=== PATIENT | female | born 1985 | race American Indian/Alaskan Native ===

== ENCOUNTER 2018-12-08 16:48 | Emergency (ER) | payer SELFPAY | END 2018-12-08 18:00 | disposition left against medical advice (07) | LOC: ED 16:48 ==

== ENCOUNTER 2019-05-02 20:21 | Emergency (ER) | payer MEDICAID ==
--- NOTE | 2019-05-02 20:31 | Emergency Department Report ---
Blank Doc - Documentation Documentation: This is a 34-year-old female that presents with pelvic pain with dysuria and v aginal discharge. This initial assessment/diagnostic orders/clinical plan/treatment(s) is/are subject to change based on patient's health status, clinical progression and re- assessment by fellow clinical providers in the ED. Further treatment and workup at subsequent clinical providers discretion. Patient/guardians urged not to elope from the ED as their condition may be serious if not clinically assessed and managed. Initial orders include: 1- Patient sent to [facility] for further evaluation and treatment 2- wet prep 3- UA
[2019-05-02 20:32] VITALS: BP 126/79
[2019-05-02 21:35] LABS: Bacteria,Urine 1+ /HPF (Negative); Bilirubin,Urine NEG (Negative); Blood,Urine NEG (Negative); Color,Urine Yellow (Yellow); Mucus,Urine FEW /HPF; Protein,Urine <15 mg/dL mg/dL (Negative); Urobilinogen,Urine < 2.0 mg/dL (<2.0)
[2019-05-02 21:40] LABS: HCG Qualitative,Urine Negative (Negative)
--- NOTE | 2019-05-03 01:35 | Emergency Department Report ---
ED Female HPI - General Chief complaint: Abdominal Pain Stated complaint: ABD PAIN Time Seen by Provider: 05/02/19 20:30 Source: patient Mode of arrival: Ambulatory Limitations: No Limitations - History of Present Illness Initial comments: This is a 34-year-old Afro-[place] female who presents to the emergency room with vaginal discharge, dysuria, and vaginal irritation for 2 days. Patient states she has taken [id number] Monistat with no improvement of symptoms. She also reports some pelvic pain. She denies risk STD due to condom use. Patient reports a history of uterine prolapse which causes frequent infections. Last menstrual period was 04/13/2019, A0. She denies urinary frequency, urgency, hematuria, or back pain. MD Complaint: vaginal discharge, pelvic pain Onset/Timin -: days(s) Location: labia, suprapubic Radiation: non-radiating Severity: mild Severity scale (0 -10): 3 Quality: burning, other (itching) Consistency: constant Improves with: none Worsens with: urination Are you Now?: No Last Menstrual Period: 04/13/19 EDC: 01/18/20 Associated Symptoms: vaginal discharge, abdominal pain, dysuria. denies: vaginal bleeding, nausea/vomiting, fever/chills, headaches, loss of appetite, hematuria, rash, seizure, shortness of breath, syncope, weakness - Related Data Sexually active: Yes : 3 Para: 3 A: 0 Previous Rx's Medication Instructions Recorded Last Taken Type HYDROcodone/APAP 5-325 [[place] 1 each PO Q6HR PRN #10 tablet 03/01/14 Unknown Rx 5-325 mg TAB] Ondansetron [Zofran Odt] 4 mg PO Q6H PRN #8 tab.rapdis 03/01/14 Unknown Rx metroNIDAZOLE [Flagyl TAB] 500 mg PO Q12HR #14 tab 05/03/19 Unknown Rx Allergies Allergy/AdvReac Type Severity Reaction Status Date / Time No Known Allergies Allergy Verified 05/02/19 20:24 ED Review of Systems ROS: Stated complaint: ABD PAIN Other details as noted in HPI Constitutional: denies: chills, fever Respiratory: denies: cough, shortness of breath, wheezing Cardiovascular: denies: chest pain, palpitations Gastrointestinal: abdominal pain. denies: nausea, diarrhea Genitourinary: dysuria, discharge. denies: urgency Skin: denies: rash, lesions Neurological: denies: headache, weakness, paresthesias Psychiatric: denies: anxiety, depression ED Past Medical Hx - Past Medical History Previous Medical History?: Yes Hx Asthma: Yes - Surgical History Past Surgical History?: Yes Additional Surgical History: cyst on left breast removed. tubal ligation - Social History Smoking Status: Never Smoker Substance Use Type: Alcohol - Medications Home Medications: Home Medications Medication Instructions Recorded Confirmed Last Taken Type HYDROcodone/APAP 5-325 [[place] 1 each PO Q6HR PRN #10 tablet 03/01/14 Unknown Rx 5-325 mg TAB] Ondansetron [Zofran Odt] 4 mg PO Q6H PRN #8 tab.rapdis 03/01/14 Unknown Rx metroNIDAZOLE [Flagyl TAB] 500 mg PO Q12HR #14 tab 05/03/19 Unknown Rx ED Physical Exam - General Limitations: No Limitations General appearance: alert, in no apparent distress, obese - Respiratory Respiratory exam: Present: normal lung sounds bilaterally. Absent: respiratory distress - Cardiovascular Cardiovascular Exam: Present: regular rate, normal rhythm. Absent: systolic murmur, diastolic murmur, rubs, gallop - GI/Abdominal GI/Abdominal exam: Present: soft, normal bowel sounds. Absent: distended, tenderness, guarding, rebound, rigid - External exam: Present: normal external exam Speculum exam: Present: vaginal discharge (Curdy white malodorous discharge). Absent: erythema, cervical discharge, vaginal bleeding, foreign body, tissue, laceration Bi-manual exam: Present: normal bi-manual exam - Back Exam Back exam: Absent: CVA tenderness (R), CVA tenderness (L) - Neurological Exam Neurological exam: Present: alert, oriented X3 - Psychiatric Psychiatric exam: Present: normal affect, normal mood - Skin Skin exam: Present: warm, dry, intact, normal color. Absent: rash ED Course Vital Signs 05/02/19 05/02/19 05/02/19 20:28 20:29 23:09 Temperature 97.9 F 97.9 F Pulse Rate 101 H 97 H Respiratory 18 18 16 Rate Blood Pressure 126/79 126/79 O2 Sat by Pulse 98 98 Oximetry ED Medical Decision Making - Lab Data Lab Results 05/02/19 Range/Units 20:57 Urine Color Yellow (Yellow) Urine Turbidity Cloudy (Clear) Urine pH 5.0 (5.0-7.0) Ur Specific [place] 1.032 H (1.003-1.030) Urine Protein <15 mg/dl (Negative) mg/dL Urine Glucose (UA) Neg (Negative) mg/dL Urine Ketones Neg (Negative) mg/dL Urine Blood Neg (Negative) Urine Nitrite Neg (Negative) Urine Bilirubin Neg (Negative) Urine Urobilinogen < 2.0 (<2.0) mg/dL Ur Leukocyte Esterase Lg (Negative) Urine WBC (Auto) 7.0 H (0.0-6.0) /HPF Urine RBC (Auto) 8.0 (0.0-6.0) /HPF U Epithel Cells (Auto) 11.0 (0-13.0) /HPF Urine Bacteria (Auto) 1+ (Negative) /HPF Urine Mucus Few /HPF Urine HCG, Qual Negative (Negative) - Medical Decision Making Patient was examined by this provider. Vitals are stable and in no acute dis tress. A urinalysis, urine test, gonorrhea and chlamydia, and blood prep was obtained via pelvic exam. A urinalysis and urine test was unremarkable. The wet prep was positive for clue cells, negative Trichomonas and period patient was instructed to follow up in 3-5 days for pending gonorrhea and chlamydia results. Start metronidazole 500 mg by mouth twice a day 7 days for bacterial vaginitis. Discharged home in stable condition. Discussed prevention options. F/U with PCP or Health Department. Critical care attestation.: If time is entered above; I have spent that time in minutes in the direct care of this critically ill patient, excluding procedure time. ED Disposition Clinical Impression: Vaginal discharge, Dysuria, Bacterial vaginitis Disposition: - TO HOME OR SELFCARE Is pt being admited?: No Does the pt Need Aspirin: No Condition: Stable Instructions: Abdominal Pain (ED), Bacterial Vaginosis (ED) Additional Instructions: Complete full course of antibiotics as prescribed. Return to the emergency room in 3-5 days for pending lab results. Follow-up with a drive tester if symptoms persist. I have provided a list of gynecologists in the referral section below. Prescriptions: metroNIDAZOLE [Flagyl TAB] 500 mg PO Q12HR #14 tab Referrals: [facility] [Provider Group] - 3-5 Days [facility] [Provider Group] - 3-5 Days [facility] [Provider Group] - 3-5 Days [facility] [Outside] - 3-5 Days Forms: STI Treatment and Prevention, Work/School Release Form(ED) Time of Disposition: 01:37
== END 2019-05-03 01:45 | disposition home or self-care (01) ==
LOC: ED 20:21
DX: N76.0 Acute vaginitis (principal); J45.909 Unspecified asthma, uncomplicated; Z79.899 Other long term (current) drug therapy
CPT/HCPCS: 81001; 81025; 87210; 87591; 99284

== ENCOUNTER 2019-08-11 08:10 | Emergency (ER) | payer MEDICAID ==
[2019-08-11 08:35] VITALS: BP 122/81
[2019-08-11] MEDS ORDERED: FAMOTIDINE 20 MG TAB PO ONE (08:38)
[2019-08-11] MEDS ORDERED: hydrOXYzine PAMOATE 25 MG CAP PO ONE (08:38)
[2019-08-11] MEDS ORDERED: dexAMETHasone 4 MG/ML VIAL IM ONE (08:38)
--- NOTE | 2019-08-11 08:41 | Emergency Department Report ---
ED Rash HPI - HPI Chief Complaint: Animal Bite Stated Complaint: STUNG BY BEES Time Seen by Provider: 08/11/19 08:37 Duration: 1 Day Location: Head Suspected Cause: Insect Rash Symptoms: Yes Facial Swelling (EYES), No Itching, No Tongue/Oral Swelling, No Breathing Difficulties, No Choking Sensation, No Wheezing/Dyspnea, No Peeling, No Blistering, No Fever Severity: mild Other History: 34 YO AA FEMALES COMES TO ER WITH INSECT BITE. SHE WAS BIT ON HEAD YEST AT 1300 BY A BEE. SHE THEN DEVELOPED B EYE SWELLING. NO SOB. NO WHEEZING. NO CP. NO GENE. NO OTHER COMPLAINTS. SHE DID NOT GO TO WORK TODAY BECAUSE OF SWELLING AND REQUESTS NOTE. OTC BENADRYL TAKEN AT HOME WITH MILD RELIEF ED Review of Systems ROS: Stated complaint: STUNG BY BEES Other details as noted in HPI Comment: All other systems reviewed and negative ED Past Medical Hx - Past Medical History Previous Medical History?: Yes Hx Asthma: Yes - Surgical History Past Surgical History?: Yes Additional Surgical History: cyst on left breast removed. tubal ligation - Family History Family history: no significant - Social History Smoking Status: Never Smoker Substance Use Type: None - Medications Home Medications: Home Medications Medication Instructions Recorded Confirmed Last Taken Type Cetirizine HCl [ZyrTEC] 10 mg PO DAILY #30 capsule 08/11/19 Unknown Rx hydrOXYzine PAMOATE [Vistaril] 25 mg PO Q6HR PRN #20 capsule 08/11/19 Unknown Rx predniSONE [Deltasone] 20 mg PO DAILY #5 tablet 08/11/19 Unknown Rx Rash Exam - Exam General: Vital signs noted. No distress. Alert and acting appropriately. HEENT: Yes Periorbital Edema, No Conjuctival Injection, No Chemosis, No Perioral Edema, No Tongue Edema, No Uvular Edema, No Compromised Airway, No Drooling Lungs: Yes Good Air Exchange, No Wheezes, No Ronchi, No Stridor, No Cough, No Labored Respirations, No Retractions, No Use of Accessory Muscles Heart: Yes Regular, No Murmur Skin: No Urticarial Rash, No Maculopapular Rash, No Morbilliform rash, No Bulla(e), No Excoriations Other: Positive: Abdomen Normal, Neurologic Normal, Musculoskeletal Normal ED Course Vital Signs 08/11/19 08:32 Temperature 98.2 F Pulse Rate 89 Respiratory 16 Rate Blood Pressure 122/81 [Left] O2 Sat by Pulse 97 Oximetry ED Medical Decision Making - Medical Decision Making EYES SWELLING SP BEE BITE YESTERDAY ABC INTACT NO GENE VSS SAT 100 ON ROOM AIR NO WHEEZING NO RASH MEDICATED IN ER DC HOME WITH DC PLAN OF CARE Vital Signs 08/11/19 08:32 Temperature 98.2 F Pulse Rate 89 Respiratory 16 Rate Blood Pressure 122/81 [Left] O2 Sat by Pulse 97 Oximetry - Differential Diagnosis BEE BITE Critical care attestation.: If time is entered above; I have spent that time in minutes in the direct care of this critically ill patient, excluding procedure time. ED Disposition Clinical Impression: Insect bite, Bee sting Disposition: DC-01 TO HOME OR SELFCARE Is pt being admited?: No Does the pt Need Aspirin: No Condition: Stable Instructions: Insect Bite or Sting (ED) Additional Instructions: MEDS ORDERED FOLLOW UP WITH PCP REFERRAL BELOW AVOID BEES; IF YOU GET BIT AND HAVE TROUBLE BREATHING-- CALL 911 Prescriptions: predniSONE [Deltasone] 20 mg PO DAILY #5 tablet hydrOXYzine PAMOATE [Vistaril] 25 mg PO Q6HR PRN #20 capsule PRN Reason: Itching Cetirizine HCl [ZyrTEC] 10 mg PO DAILY #30 capsule Referrals: DODIE GIBSON MD [Staff Physician] - 3-5 Days Forms: Work/School Release Form(ED) Time of Disposition: 08:40
== END 2019-08-11 09:07 | disposition home or self-care (01) ==
LOC: ED 08:10
DX: S00.96XA Insect bite (nonvenomous) of unspecified part of head, initial encounter (principal); W57.XXXA Bitten or stung by nonvenomous insect and other nonvenomous arthropods, initial encounter; J45.909 Unspecified asthma, uncomplicated; Z98.51 Tubal ligation status; Y93.89 Activity, other specified; Y92.89 Other specified places as the place of occurrence of the external cause; Y99.8 Other external cause status
CPT/HCPCS: 96372; 99282; J1100; Q0177

== ENCOUNTER 2019-10-02 19:19 | Emergency (ER) | payer SELFPAY ==
--- NOTE | 2019-10-02 19:32 | Emergency Department Report ---
Blank Doc - Documentation Documentation: 34-year-old female that presents with URI symptoms. This initial assessment/diagnostic orders/clinical plan/treatment(s) is/are subject to change based on patient's health status, clinical progression and re- assessment by fellow clinical providers in the ED. Further treatment and workup at subsequent clinical providers discretion. Patient/guardians urged not to elope from the ED as their condition may be serious if not clinically assessed and managed. Initial orders include: 1- Patient sent to [facility] for further evaluation and treatment 2- cxr
--- NOTE | 2019-10-02 20:10 | XRay Report ---
CHEST 2 VIEWS INDICATION / CLINICAL INFORMATION: cough. COMPARISON: None available. FINDINGS: SUPPORT DEVICES: None. HEART / MEDIASTINUM: No significant abnormality. LUNGS / PLEURA: No acute pulmonary or pleural abnormality. There are scattered calcified granulomata. No pneumothorax. ADDITIONAL FINDINGS: No significant additional findings. IMPRESSION: 1. No acute findings. Signer Name: Jaime Goodwin MD Signed: 10/02/2019 8:06 PM Workstation Name: [id number]
--- NOTE | 2019-10-02 20:30 | Emergency Department Report ---
- General Chief Complaint: Upper Respiratory Infection Stated Complaint: LFT SIDE PAIN/COUGH Time Seen by Provider: 10/02/19 19:31 Source: patient Mode of arrival: Ambulatory Limitations: No Limitations - History of Present Illness Initial Comments: Patient is a 34-year-old female presents emergency room with c/o URI symptoms that began a week ago. she states initially she had a sore throat and a cough. she states that the sore throat resolved and now she has a persistent dry cough. she has left ear pain. She denies any fever, productive cough, vomiting, diarrhea, drainage from the ear. She denies any past medical history or allergies medications. She states she has tried to take Robitussin, NyQuil, DayQuil, Mucinex without relief. - Related Data Previous Rx's Medication Instructions Recorded Last Taken Type Cetirizine HCl [ZyrTEC] 10 mg PO DAILY #30 capsule 08/11/19 Unknown Rx hydrOXYzine PAMOATE [Vistaril] 25 mg PO Q6HR PRN #20 capsule 08/11/19 Unknown Rx predniSONE [Deltasone] 20 mg PO DAILY #5 tablet 08/11/19 Unknown Rx Cetirizine HCl [Zyrtec 10mg tab] 10 mg PO DAILY #14 tablet 10/02/19 Unknown Rx Dextromethorphan Polistirex 10 ml PO Q12HR PRN #1 bottle 10/02/19 Unknown Rx [Delsym] Fluticasone [Flonase] 1 spray NS QDAY #1 bottle 10/02/19 Unknown Rx Allergies Allergy/AdvReac Type Severity Reaction Status Date / Time No Known Allergies Allergy Verified 05/02/19 20:24 ED Review of Systems ROS: Stated complaint: LFT SIDE PAIN/COUGH Other details as noted in HPI Comment: All other systems reviewed and negative ED Past Medical Hx - Past Medical History Previous Medical History?: Yes Hx Asthma: Yes - Surgical History Past Surgical History?: Yes Additional Surgical History: cyst on left breast removed. tubal ligation - Social History Smoking Status: Never Smoker Substance Use Type: None - Medications Home Medications: Home Medications Medication Instructions Recorded Confirmed Last Taken Type Cetirizine HCl [ZyrTEC] 10 mg PO DAILY #30 capsule 08/11/19 Unknown Rx hydrOXYzine PAMOATE [Vistaril] 25 mg PO Q6HR PRN #20 capsule 08/11/19 Unknown Rx predniSONE [Deltasone] 20 mg PO DAILY #5 tablet 08/11/19 Unknown Rx Cetirizine HCl [Zyrtec 10mg tab] 10 mg PO DAILY #14 tablet 10/02/19 Unknown Rx Dextromethorphan Polistirex 10 ml PO Q12HR PRN #1 bottle 10/02/19 Unknown Rx [Delsym] Fluticasone [Flonase] 1 spray NS QDAY #1 bottle 10/02/19 Unknown Rx ED Physical Exam - General Limitations: No Limitations General appearance: alert, in no apparent distress - Head Head exam: Present: atraumatic, normocephalic - Eye Eye exam: Present: normal appearance - ENT ENT exam: Present: normal orophraynx, mucous membranes moist, other (cerumen impaction to the left ear canal, right TM and canal are normal, no tonsillar hypertrophy or exudates, pale boggy turbinates) - Respiratory Respiratory exam: Present: normal lung sounds bilaterally. Absent: respiratory distress, wheezes, rales, rhonchi, stridor, chest wall tenderness, accessory muscle use, decreased breath sounds, prolonged expiratory - Cardiovascular Cardiovascular Exam: Present: regular rate, normal rhythm, normal heart sounds. Absent: systolic murmur, diastolic murmur, rubs, gallop - Neurological Exam Neurological exam: Present: alert, oriented X3 - Psychiatric Psychiatric exam: Present: normal affect, normal mood - Skin Skin exam: Present: warm, dry, intact ED Course Vital Signs 10/02/19 10/02/19 10/02/19 19:23 19:32 23:29 Temperature 98.5 F 98.5 F Pulse Rate 84 81 74 Respiratory 18 18 16 Rate Blood Pressure 124/54 124/54 Blood Pressure 109/86 [Right] O2 Sat by Pulse 98 100 100 Oximetry ED Medical Decision Making - Radiology Data Radiology results: report reviewed CXR no acute findings - Medical Decision Making Patient is a 34-year-old female presents emergency room with c/o URI symptoms that began a week ago. she states initially she had a sore throat and a cough. she states that the sore throat resolved and now she has a persistent dry cough. she has left ear pain. She denies any fever, productive cough, vomiting, diarrhea, drainage from the ear. She denies any past medical history or allergies medications. She states she has tried to take Robitussin, NyQuil, DayQuil, Mucinex without relief. on exam: cerumen impaction to the left ear canal, right TM and canal are normal, no tonsillar hypertrophy or exudates, pale boggy turbinates, lungs are clear bilaterally, no w/r/r. CXR no acute findings. No clinical signs or symptoms of pneumonia. No wheezing or rhonchi to suggest bronchitis. Symptoms and examination appear consistent with a viral URI. Discussed symptomatic treatment with patient. Discussed using T Brox [id number] for cerumen impaction removal. Advised patient to see her regular doctor in 3 days for reexamination of her ear. advised pt to please take medication as prescribed. Increase your water intake. please use debrox ear cleaning kit to remove ear wax from the left ear. May use a humidifier drink, warm tea, do warm saltwater gargles. Follow up with primary care doctor in the next 3 days. Return to the emergency room for any new or worsening symptoms. - Differential Diagnosis URI, PNA, viral syndrome, otitis media/externa, cerumen impaction Critical care attestation.: If time is entered above; I have spent that time in minutes in the direct care of this critically ill patient, excluding procedure time. ED Disposition Clinical Impression: Left ear impacted cerumen URI (upper respiratory infection) Qualifiers: URI type: unspecified URI Qualified Code(s): J06.9 - Acute upper respiratory infection, unspecified Disposition: DC-01 TO HOME OR SELFCARE Is pt being admited?: No Does the pt Need Aspirin: No Condition: Stable Instructions: Cerumen Impaction (ED), Upper Respiratory Infection (ED) Additional Instructions: Please take medication as prescribed. Increase your water intake. please use debrox ear cleaning kit to remove ear wax from the left ear. May use a humidifier drink, warm tea, do warm saltwater gargles. Follow up with primary care doctor in the next 3 days. Return to the emergency room for any new or worsening symptoms. Prescriptions: Dextromethorphan Polistirex [Delsym] 10 ml PO Q12HR PRN #1 bottle PRN Reason: cough Fluticasone [Flonase] 1 spray NS QDAY #1 bottle Cetirizine HCl [Zyrtec 10mg tab] 10 mg PO DAILY #14 tablet Referrals: [facility] [Provider Group] - 2-3 Days Time of Disposition: 20:30 Print Language: MALTESE
[2019-10-02 23:31] VITALS: BP 109/86
== END 2019-10-02 20:50 | disposition home or self-care (01) ==
LOC: ED 19:19
DX: H61.22 Impacted cerumen, left ear (principal); J06.9 Acute upper respiratory infection, unspecified; J45.909 Unspecified asthma, uncomplicated; Z98.51 Tubal ligation status; Z79.899 Other long term (current) drug therapy
CPT/HCPCS: 71046

== ENCOUNTER 2020-03-26 15:03 | Emergency (ER) | payer SELFPAY ==
[2020-03-26 18:14] LABS: Basophils % (Auto) 0.2 % (0.0-1.8); Eosinophils # (Auto) 0.1 K/mm3 (0.0-0.4); Eosinophils % (Auto) 1.7 % (0.0-4.3); Hematocrit 34.7 % (30.3-42.9); Hemoglobin 11.5 gm/dl (10.1-14.3); Lymphocytes # (Auto) 1.6 K/mm3 (1.2-5.4); Lymphocytes % (Auto) 24.6 % (13.4-35.0); Mean Corpuscular HGB Conc 33 % (30-34); Mean Corpuscular Volume 80 fl (79-97); Monocytes # (Auto) 0.5 K/mm3 (0.0-0.8); Monocytes % (Auto) 7.1 % (0.0-7.3); Platelet Count 376 K/mm3 (140-440); Red Blood Count 4.37 M/mm3 (3.65-5.03); Red Cell Distribution Width 16.7 % (13.2-15.2)
[2020-03-26 18:38] LABS: Alanine Aminotransferase 18 units/L (7-56); Albumin 4.4 g/dL (3.9-5); BUN/Creatinine Ratio 13; Blood Urea Nitrogen 8 mg/dL (7-17); Calcium 10.3 mg/dL (8.4-10.2); Hemolysis Index 31
--- NOTE | 2020-03-26 19:06 | Emergency Department Report ---
HPI <SEBASTIEN DE LA TORRE - Last Filed: 03/26/20 20:42> - HPI HPI: 35-year-old female presents to the emergency department with a complaint of a one-week history of bilateral lower extremity swelling and some intermittent pains. Patient says that the pain is mostly around the ankles but it shoots up, especially in the right leg, through her posterior leg and calf when she is ambulating. She denies any fall or any trauma. She has not taken anything for symptoms prior to presentation. She has a past medical history of asthma. No recent travel or sick contacts at home. No history of any CHF, DVT or PE. She denies any chest pain or shortness of breath. <SHAINA COATS S - Last Filed: 03/27/20 20:29> - General Chief Complaint: Extremity Problem,Nontraumatic Time Seen by Provider: 03/26/20 17:18 ED Past Medical Hx <CHARLETTESEBASTIEN - Last Filed: 03/26/20 20:42> - Past Medical History Previous Medical History?: Yes Hx Asthma: Yes - Surgical History Past Surgical History?: Yes Additional Surgical History: cyst on left breast removed. tubal ligation - Social History Smoking Status: Never Smoker Substance Use Type: None <SHAINA COATS - Last Filed: 03/27/20 20:29> - Medications Home Medications: Home Medications Medication Instructions Recorded Confirmed Last Taken Type Cetirizine HCl [ZyrTEC] 10 mg PO DAILY #30 capsule 08/11/19 Unknown Rx hydrOXYzine PAMOATE [Vistaril] 25 mg PO Q6HR PRN #20 capsule 08/11/19 Unknown Rx predniSONE [Deltasone] 20 mg PO DAILY #5 tablet 08/11/19 Unknown Rx Cetirizine HCl [Zyrtec 10mg tab] 10 mg PO DAILY #14 tablet 10/02/19 Unknown Rx Dextromethorphan Polistirex 10 ml PO Q12HR PRN #1 bottle 10/02/19 Unknown Rx [Delsym] Fluticasone [Flonase] 1 spray NS QDAY #1 bottle 10/02/19 Unknown Rx Furosemide [Lasix] 20 mg PO QDAY #3 tablet 03/26/20 Unknown Rx ED Review of Systems ROS: Stated complaint: LEG PAIN Other details as noted in HPI <CHARLETTESEBASTIEN - Last Filed: 03/26/20 20:42> ROS: Stated complaint: LEG PAIN Other details as noted in HPI Comment: All other systems reviewed and negative Constitutional: denies: chills, fever Eyes: denies: eye pain, vision change ENT: denies: ear pain, throat pain Respiratory: denies: cough, shortness of breath Cardiovascular: edema. denies: chest pain, palpitations Gastrointestinal: denies: abdominal pain, vomiting Genitourinary: denies: dysuria, discharge Musculoskeletal: arthralgia, myalgia. denies: back pain Skin: denies: rash, lesions Neurological: denies: headache, weakness <SHAINA COATS - Last Filed: 03/27/20 20:29> Physical Exam - Physical Exam Vital Signs: Vital Signs 03/26/20 03/26/20 15:20 18:35 Temperature 98.2 F Pulse Rate 62 Respiratory 20 16 Rate Blood Pressure 117/81 Blood Pressure 119/70 [Left] O2 Sat by Pulse 100 Oximetry <SEBASTIEN DE LA TORRE - Last Filed: 03/26/20 20:42> - Physical Exam Vital Signs: Vital Signs 03/26/20 03/26/20 15:20 18:35 Temperature 98.2 F Pulse Rate 62 Respiratory 20 16 Rate Blood Pressure 117/81 Blood Pressure 119/70 [Left] O2 Sat by Pulse 100 Oximetry Physical Exam: GENERAL: The patient is well-developed well-nourished. HENT: Normocephalic. Atraumatic. Patient has moist mucous membranes. EYES: Extraocular motions are intact. NECK: Supple. Trachea is midline. CHEST/LUNGS: Clear to auscultation. There is no respiratory distress noted. HEART/CARDIOVASCULAR: Regular. There is no tachycardia. There is no murmur. SKIN: Skin is warm and dry. There is mild to moderate nonpitting swelling of the bilateral lower extremities including feet. No rash or skin color change. NEURO: The patient is awake, alert, and oriented. The patient is cooperative. The patient has no focal neurologic deficits. Normal speech. MUSCULOSKELETAL: There is some mild tenderness to palpation of the right calf. There is no limitation range of motion. +2/4 dorsalis pedis pulses and capillary refill less than 2 seconds. <SHAINA COATS - Last Filed: 03/27/20 20:29> ED Course Vital Signs 03/26/20 03/26/20 15:20 18:35 Temperature 98.2 F Pulse Rate 62 Respiratory 20 16 Rate Blood Pressure 117/81 Blood Pressure 119/70 [Left] O2 Sat by Pulse 100 Oximetry - Reevaluation(s) Reevaluation #1: 03/26/20 20:42 DVT study negative. Vital signs unremarkable. Patient resting comfortably in h er stretcher and in no acute distress. She is suitable for discharge with outpatient follow-up at this time <SEBASTIEN DE LA TORRE - Last Filed: 03/26/20 20:42> Vital Signs 03/26/20 03/26/20 15:20 18:35 Temperature 98.2 F Pulse Rate 62 Respiratory 20 16 Rate Blood Pressure 117/81 Blood Pressure 119/70 [Left] O2 Sat by Pulse 100 Oximetry <SHAINA COATS - Last Filed: 03/27/20 20:29> ED Medical Decision Making - Lab Data Result diagrams: 03/26/20 17:43 03/26/20 17:43 Vital Signs 03/26/20 03/26/20 15:20 18:35 Temperature 98.2 F Pulse Rate 62 Respiratory 20 16 Rate Blood Pressure 117/81 Blood Pressure 119/70 [Left] O2 Sat by Pulse 100 Oximetry Lab Results 03/26/20 03/26/20 Range/Units 17:43 17:43 WBC 6.6 (4.5-11.0) K/mm3 RBC 4.37 (3.65-5.03) M/mm3 Hgb 11.5 (10.1-14.3) gm/dl Hct 34.7 (30.3-42.9) % MCV 80 (79-97) fl MCH 26 L (28-32) pg MCHC 33 (30-34) % RDW 16.7 H (13.2-15.2) % Plt Count 376 (140-440) K/mm3 Lymph % (Auto) 24.6 (13.4-35.0) % [place] % (Auto) 7.1 (0.0-7.3) % Eos % (Auto) 1.7 (0.0-4.3) % Baso % (Auto) 0.2 (0.0-1.8) % Lymph # 1.6 (1.2-5.4) K/mm3 [place] # 0.5 (0.0-0.8) K/mm3 Eos # 0.1 (0.0-0.4) K/mm3 Baso # 0.0 (0.0-0.1) K/mm3 Seg Neutrophils % 66.4 (40.0-70.0) % Seg Neutrophils # 4.4 (1.8-7.7) K/mm3 Sodium 138 (137-145) mmol/L Potassium 4.0 (3.6-5.0) mmol/L Chloride 99.9 (98-107) mmol/L Carbon Dioxide 25 (22-30) mmol/L Anion Gap 17 mmol/L BUN 8 (7-17) mg/dL Creatinine 0.6 L (0.7-1.2) mg/dL Estimated GFR > 60 ml/min BUN/Creatinine Ratio 13 % Glucose 84 (65-100) mg/dL Calcium 10.3 H (8.4-10.2) mg/dL Total Bilirubin 0.40 (0.1-1.2) mg/dL AST 20 (5-40) units/L ALT 18 (7-56) units/L Alkaline Phosphatase 62 (35-129) units/L NT-Pro-B Natriuret Pep 21.78 (0-450) pg/mL Total Protein 8.1 (6.3-8.2) g/dL Albumin 4.4 (3.9-5) g/dL Albumin/Globulin Ratio 1.2 % - Radiology Data Radiology results: report reviewed, image reviewed <MORENITASEBASTIEN HERNÁNDEZ - Last Filed: 03/26/20 20:42> - Lab Data Result diagrams: 03/26/20 17:43 03/26/20 17:43 - Radiology Data Radiology results: report reviewed Bilateral lower extremity venous Doppler ultrasound was negative for any DVT or acute process. - Medical Decision Making This patient presents with a one-week history of bilateral lower extremity swelling. She does have some pain, mostly around the ankles, but does complain of some pain going through the right calf when she is walking. On examination she has some nonpitting swelling but otherwise appears neurovascularly intact. No obvious rash, skin color change, lesions. Patient's labs have been mostly unremarkable including CBC, metabolic panel and proBNP. The patient will have bilateral lower extremity venous Doppler ultrasounds this evening. If positive, the patient will be placed on anticoagulation. If negative, the patient has been instructed to follow-up with primary care. This patient will be signed out to my colleague, Dr. De La Torre, to follow the ultrasound results and assist with further disposition. In reviewing the patient's venous Doppler ultrasound results, the patient did not have any signs of DVT. She was discharged home with a few days of Lasix and outpatient follow-up with primary care. <SHAINA COATS S - Last Filed: 03/27/20 20:29> Critical care attestation.: If time is entered above; I have spent that time in minutes in the direct care of this critically ill patient, excluding procedure time. <SEBASTIEN DE LA TORRE - Last Filed: 03/26/20 20:42> Critical Care Time: No Critical care attestation.: If time is entered above; I have spent that time in minutes in the direct care of this critically ill patient, excluding procedure time. <SHAINA COATS S - Last Filed: 03/27/20 20:29> ED Disposition Is pt being admited?: No Does the pt Need Aspirin: No <SEBASTIEN DE LA TORRE - Last Filed: 03/26/20 20:42> Is pt being admited?: No Time of Disposition: 19:10 <SHAINA COATS S - Last Filed: 03/27/20 20:29> Clinical Impression: Bilateral lower extremity edema Disposition: - TO HOME OR SELFCARE Condition: Stable Instructions: Furosemide (By mouth), Leg Edema (ED) Additional Instructions: Please follow-up with a primary care physician in the next few days. Return to the emergency department with any worsening of your symptoms or any acute distress. I have given you a few pills of Lasix, a diuretic. This medication will take some of the fluid off your legs and you will have increased urination. Prescriptions: Furosemide [Lasix] 20 mg PO QDAY #3 tablet Referrals: PRIMARY CAREMD [Primary Care Provider] - 3-5 Days MESSI OSORIO MD [Staff Physician] - 3-5 Days [facility] [Provider Group] - 3-5 Days
--- NOTE | 2020-03-26 20:13 | Vascular Lab Report ---
DUPLEX DOPPLER LOWER EXTREMITY VEINS, BILATERAL INDICATION / CLINICAL INFORMATION: B/L LE pain and swelling. TECHNIQUE: Duplex doppler imaging was performed through the veins of both lower extremities using venous rosalie savanah and other maneuvers. COMPARISON: None available. FINDINGS: Right Common Femoral vein: Negative. Right Femoral vein: Negative. Right Popliteal vein: Negative. Right Calf veins: Negative. Left Common Femoral vein: Negative. Left Femoral vein: Negative. Left Popliteal vein: Negative. Left Calf veins: Negative. Additional findings: None. IMPRESSION: 1. No sonographic evidence for DVT in either lower extremity. Signer Name: Ruy Garrido MD Signed: 03/26/2020 8:08 PM Workstation Name: [id number]
[2020-03-27 13:30] VITALS: BP 119/70
== END 2020-03-26 21:37 | disposition home or self-care (01) ==
LOC: ED 15:03
DX: R60.0 Localized edema (principal); J45.909 Unspecified asthma, uncomplicated; Z98.51 Tubal ligation status; Z98.890 Other specified postprocedural states; Z79.899 Other long term (current) drug therapy
CPT/HCPCS: 36415; 80053; 83880; 85025; 93970

== ENCOUNTER 2020-05-24 12:34 | Emergency (ER) | payer SELFPAY ==
--- NOTE | 2020-05-24 14:07 | Event Note ---
ED Screening Note Date of service: 05/24/20 Time: 14:01 ED Screening Note: This is a 35-year-old female presents the ED complaining of mid sided chest pain x1 week. Patient states she is also been coughing This initial assessment/diagnostic orders/clinical plan/treatment(s) is/are subject to change based on patients health status, clinical progression and re- assessment by fellow clinical providers in the ED. Further treatment and workup at subsequent clinical providers discretion. Patient/guardian urged not to elope from the ED as their condition may be serious if not clinically assessed and managed. Initial orders include: Checks x-ray, EKG
--- NOTE | 2020-05-24 14:37 | XRay Report ---
CHEST 2 VIEWS INDICATION: cp/cough. COMPARISON: 10/02/2019 FINDINGS: Support devices: None. Heart: Within normal limits. Lungs/pleura: No acute air space or interstitial disease. No pneumothorax. Additional findings: None. IMPRESSION: No acute findings. Signer Name: Steve Hughes Jr, MD Signed: 05/24/2020 2:32 PM Workstation Name: [id number]
[2020-05-24 15:45] LABS: Basophils % (Auto) 0.9 % (0.0-1.8); Eosinophils % (Auto) 0.3 % (0.0-4.3); Hemoglobin 11.8 gm/dl (10.1-14.3); Lymphocytes # (Auto) 1.9 K/mm3 (1.2-5.4); Lymphocytes % (Auto) 38.2 % (13.4-35.0); Mean Corpuscular HGB Conc 33 % (30-34); Mean Corpuscular Volume 78 fl (79-97); Monocytes # (Auto) 0.4 K/mm3 (0.0-0.8); Monocytes % (Auto) 7.6 % (0.0-7.3); Platelet Count 278 K/mm3 (140-440)
[2020-05-24 15:56] LABS: INR 1.02 (0.87-1.13)
[2020-05-24 15:59] LABS: Alanine Aminotransferase 22 units/L (7-56); Albumin 3.9 g/dL (3.9-5); BUN/Creatinine Ratio 15; Blood Urea Nitrogen 12 mg/dL (7-17); Hemolysis Index 23
--- NOTE | 2020-05-24 17:24 | Emergency Department Report ---
Upper Respiratory HPI - HPI Chief Complaint: Upper Respiratory Infection Stated Complaint: CHEST PAIN, DEHYDRATED Time Seen by Provider: 05/24/20 14:41 URI Symptoms: Rhinorrhea: Yes, Sore Throat: No, Ear Pain: No, Cough: Yes, Shortness of Breath: No, Sick Contacts: No, Unable to Take Fluids: No, Urine Output Abnormal: No, Listless Behavior: No Other History: This is a 35-year-old female nontoxic, well nourished in [facility], no acute signs of distress presents to the ED with c/o of nonproductive cough, subective fever, chills, body aches, generlized weakness, rhinorrhea, nasal congestion x3 days. Stated has some mild CP when coughing. Patient describes productive cough as yellow mucus production. Patient denies any sick contacts. Patient denies any recent travels, long car, recent hospital stays. Patient denies any calf pain or calf tenderness. Patient denies any chest pain, SOB, nausea, vomiting, hemoptysis, numbness, tingling, headache or stiff neck. - Home Meds and Allergies Home Medications: Previous Rx's Medication Instructions Recorded Last Taken Type Cetirizine HCl [ZyrTEC] 10 mg PO DAILY #30 capsule 08/11/19 Unknown Rx hydrOXYzine PAMOATE [Vistaril] 25 mg PO Q6HR PRN #20 capsule 08/11/19 Unknown Rx predniSONE [Deltasone] 20 mg PO DAILY #5 tablet 08/11/19 Unknown Rx Cetirizine HCl [Zyrtec 10mg tab] 10 mg PO DAILY #14 tablet 10/02/19 Unknown Rx Dextromethorphan Polistirex 10 ml PO Q12HR PRN #1 bottle 10/02/19 Unknown Rx [Delsym] Fluticasone [Flonase] 1 spray NS QDAY #1 bottle 10/02/19 Unknown Rx Furosemide [Lasix] 20 mg PO QDAY #3 tablet 03/26/20 Unknown Rx Benzonatate [Tessalon Perles] 100 mg PO Q8HR PRN #12 capsule 05/24/20 Unknown Rx Allergies/Adverse Reactions: Allergies Allergy/AdvReac Type Severity Reaction Status Date / Time No Known Allergies Allergy Verified 05/24/20 13:56 ED Review of Systems ROS: Stated complaint: CHEST PAIN, DEHYDRATED Other details as noted in HPI Constitutional: denies: chills, fever Eyes: denies: eye pain, eye discharge, vision change ENT: congestion. denies: ear pain, throat pain Respiratory: cough. denies: shortness of breath, wheezing Cardiovascular: chest pain. denies: palpitations Endocrine: no symptoms reported Gastrointestinal: denies: abdominal pain, nausea, diarrhea Genitourinary: denies: urgency, dysuria, discharge Musculoskeletal: denies: back pain, joint swelling, arthralgia Skin: denies: rash, lesions Neurological: denies: headache, weakness, paresthesias Psychiatric: denies: anxiety, depression Hematological/Lymphatic: denies: easy bleeding, easy bruising ED Past Medical Hx - Past Medical History Previous Medical History?: Yes Hx Asthma: Yes - Surgical History Past Surgical History?: Yes Additional Surgical History: cyst on left breast removed. tubal ligation - Social History Smoking Status: Former Smoker - Medications Home Medications: Home Medications Medication Instructions Recorded Confirmed Last Taken Type Cetirizine HCl [ZyrTEC] 10 mg PO DAILY #30 capsule 08/11/19 Unknown Rx hydrOXYzine PAMOATE [Vistaril] 25 mg PO Q6HR PRN #20 capsule 08/11/19 Unknown Rx predniSONE [Deltasone] 20 mg PO DAILY #5 tablet 08/11/19 Unknown Rx Cetirizine HCl [Zyrtec 10mg tab] 10 mg PO DAILY #14 tablet 10/02/19 Unknown Rx Dextromethorphan Polistirex 10 ml PO Q12HR PRN #1 bottle 10/02/19 Unknown Rx [Delsym] Fluticasone [Flonase] 1 spray NS QDAY #1 bottle 10/02/19 Unknown Rx Furosemide [Lasix] 20 mg PO QDAY #3 tablet 03/26/20 Unknown Rx Benzonatate [Tessalon Perles] 100 mg PO Q8HR PRN #12 capsule 05/24/20 Unknown Rx ED Bronchiolitis Physical Exam - Exam General: Vital signs noted. No distress. Alert and acting appropriately. Neurologic: Alert and oriented, no deficits. Musculoskeletal: Unremarkable. ED Physical Exam - General Limitations: No Limitations General appearance: alert, in no apparent distress - Head Head exam: Present: atraumatic, normocephalic - Eye Eye exam: Present: normal appearance - Neck Neck exam: Present: normal inspection, full ROM. Absent: tenderness, meningismus, lymphadenopathy - Respiratory Respiratory exam: Present: normal lung sounds bilaterally, chest wall tenderness. Absent: respiratory distress, wheezes, rales, rhonchi, stridor, accessory muscle use, decreased breath sounds, prolonged expiratory - Cardiovascular Cardiovascular Exam: Present: regular rate, normal rhythm, normal heart sounds. Absent: bradycardia, tachycardia, irregular rhythm, systolic murmur, diastolic murmur, rubs, gallop - Extremities Exam Extremities exam: Present: normal inspection, full ROM - Back Exam Back exam: Present: normal inspection, full ROM. Absent: tenderness, CVA tenderness (R), CVA tenderness (L), muscle spasm, paraspinal tenderness, lesli tebral tenderness, rash noted - Neurological Exam Neurological exam: Present: alert, oriented X3 - Psychiatric Psychiatric exam: Present: normal affect, normal mood - Skin Skin exam: Present: warm, dry, intact, normal color. Absent: rash ED Course Vital Signs 05/24/20 05/24/20 05/24/20 12:51 13:58 14:22 Temperature 99.1 F Pulse Rate 102 H Respiratory 16 16 Rate Blood Pressure 134/83 O2 Sat by Pulse 98 Oximetry - Reevaluation(s) Reevaluation #1: 05/24/20 17:24 Patient is speaking in full sentences with no signs of distress noted. ED Medical Decision Making - Lab Data Result diagrams: 05/24/20 14:40 05/24/20 14:40 Lab Results 05/24/20 05/24/20 05/24/20 Range/Units 14:40 14:40 14:41 WBC 5.0 (4.5-11.0) K/mm3 RBC 4.60 (3.65-5.03) M/mm3 Hgb 11.8 (10.1-14.3) gm/dl Hct 36.0 (30.3-42.9) % MCV 78 L (79-97) fl MCH 26 L (28-32) pg MCHC 33 (30-34) % RDW 17.0 H (13.2-15.2) % Plt Count 278 (140-440) K/mm3 Lymph % (Auto) 38.2 H (13.4-35.0) % [place] % (Auto) 7.6 H (0.0-7.3) % Eos % (Auto) 0.3 (0.0-4.3) % Baso % (Auto) 0.9 (0.0-1.8) % Lymph # 1.9 (1.2-5.4) K/mm3 [place] # 0.4 (0.0-0.8) K/mm3 Eos # 0.0 (0.0-0.4) K/mm3 Baso # 0.0 (0.0-0.1) K/mm3 Seg Neutrophils % 53.0 (40.0-70.0) % Seg Neutrophils # 2.6 (1.8-7.7) K/mm3 PT 13.2 (12.2-14.9) Sec. INR 1.02 (0.87-1.13) APTT 20.0 L (24.2-36.6) Sec. Sodium 136 L (137-145) mmol/L Potassium 3.9 (3.6-5.0) mmol/L Chloride 100.9 (98-107) mmol/L Carbon Dioxide 21 L (22-30) mmol/L Anion Gap 18 mmol/L BUN 12 (7-17) mg/dL Creatinine 0.8 (0.7-1.2) mg/dL Estimated GFR > 60 ml/min BUN/Creatinine Ratio 15 % Glucose 90 (65-100) mg/dL Calcium 9.0 (8.4-10.2) mg/dL Total Bilirubin 0.50 (0.1-1.2) mg/dL AST 26 (5-40) units/L ALT 22 (7-56) units/L Alkaline Phosphatase 64 (35-129) units/L Troponin T < 0.010 (0.00-0.029) ng/mL Total Protein 8.1 (6.3-8.2) g/dL Albumin 3.9 (3.9-5) g/dL Albumin/Globulin Ratio 0.9 % HCG, Qual (Negative) 05/24/20 Range/Units Unknown WBC (4.5-11.0) K/mm3 RBC (3.65-5.03) M/mm3 Hgb (10.1-14.3) gm/dl Hct (30.3-42.9) % MCV (79-97) fl MCH (28-32) pg MCHC (30-34) % RDW (13.2-15.2) % Plt Count (140-440) K/mm3 Lymph % (Auto) (13.4-35.0) % [place] % (Auto) (0.0-7.3) % Eos % (Auto) (0.0-4.3) % Baso % (Auto) (0.0-1.8) % Lymph # (1.2-5.4) K/mm3 [place] # (0.0-0.8) K/mm3 Eos # (0.0-0.4) K/mm3 Baso # (0.0-0.1) K/mm3 Seg Neutrophils % (40.0-70.0) % Seg Neutrophils # (1.8-7.7) K/mm3 PT (12.2-14.9) Sec. INR (0.87-1.13) APTT (24.2-36.6) Sec. Sodium (137-145) mmol/L Potassium (3.6-5.0) mmol/L Chloride (98-107) mmol/L Carbon Dioxide (22-30) mmol/L Anion Gap mmol/L BUN (7-17) mg/dL Creatinine (0.7-1.2) mg/dL Estimated GFR ml/min BUN/Creatinine Ratio % Glucose (65-100) mg/dL Calcium (8.4-10.2) mg/dL Total Bilirubin (0.1-1.2) mg/dL AST (5-40) units/L ALT (7-56) units/L Alkaline Phosphatase (35-129) units/L Troponin T (0.00-0.029) ng/mL Total Protein (6.3-8.2) g/dL Albumin (3.9-5) g/dL Albumin/Globulin Ratio % HCG, Qual Negative (Negative) - EKG Data 05/24/20 17:29 Normal sinus rhythm at [address] or T wave significant abnormalities. Reviewed and signed by MD - Radiology Data Referring Physician: KELSEY ROMERO Patient Name: NOEL MITCHELL Date of : 1985 Sex: Female Report Date: 2020-05-24 Report Status: Finalized [address] [place] [address] XRay Report Signed Patient: NOEL MITCHELL MR#: [id number] : 1985 Acct:[id number] Age/Sex: 35 / F ADM Date: 05/24/20 Loc: ED Attending Dr: Ordering Physician: CATRACHITA CARPENTER Date of Service: 05/24/20 Procedure(s): XR chest routine 2V Accession Number(s): [id number] cc: CATRACHITA CARPENTER Fluoro Time In Minutes: CHEST 2 VIEWS INDICATION: cp/cough. COMPARISON: 10/02/2019 FINDINGS: Support devices: None. Heart: Within normal limits. Lungs/pleura: No acute air space or interstitial disease. No pneumothorax. Additional findings: None. IMPRESSION: No acute findings. Signer Name: Steve Hughes Jr, MD Signed: 05/24/2020 2:32 PM Workstation Name: [id number] Transcribed By: TTR Dictated By: STEVE HUGHES JR, MD Electronically Authenticated By: STEVE HUGHES JR, MD Signed Date/Time: 05/24/20 143 DD/ 31 TD/TT: - Medical Decision Making This is a 35-year-old female that presents with viral bronchitis and costochondritis. Patient is stable and was examined by me. Chest x-ray has been obtained and dictated by radiologist with normal exam. Patient is notified of x-ray results with no questions noted. Patient does not meet clinical concerns of COVID-19 but patient was instructed and educated on signs and symptoms and to self quarantine and seek medical attention as soon as possible if symptoms does occur. Patient was instructed to increase hydration, rest and take Tylenol for fever episodes. Vitals stable. Patient is nonfebrile and normal heart rate. Patient was instructed Follow-up with a primary care doctor in 3-5 days or if symptoms worsen and continue return to emergency room as soon as possible. At time time of discharge, the patient does not seem toxic or ill in appearance. No acute signs of distress noted. Patient agrees to discharge treatment plan of care. No further questions noted by the patient.nt. Critical care attestation.: If time is entered above; I have spent that time in minutes in the direct care of this critically ill patient, excluding procedure time. ED Disposition Clinical Impression: Viral bronchitis, Costochondritis Disposition: DC-01 TO HOME OR SELFCARE Is pt being admited?: No Does the pt Need Aspirin: No Condition: Stable Instructions: Acute Bronchitis (ED), Chronic Bronchitis (ED) Additional Instructions: Follow-up with a primary care doctor in 3-5 days or if symptoms worsen and continue return to emergency room as soon as possible. Increased rest, hydration, and take Tylenol as prescribed for fever episode. Prescriptions: Benzonatate [Tessalon Perles] 100 mg PO Q8HR PRN #12 capsule PRN Reason: Cough Referrals: PRIMARY CAREMD [Primary Care Provider] - 3-5 Days OPHELIA HUNTER MD [Staff Physician] - 3-5 Days Forms: Work/School Release Form(ED)
[2020-05-24 17:36] VITALS: BP 169/66
== END 2020-05-24 17:36 | disposition home or self-care (01) ==
LOC: ED 12:34
DX: B34.9 Viral infection, unspecified (principal); M94.0 Chondrocostal junction syndrome [Tietze]; J45.909 Unspecified asthma, uncomplicated
CPT/HCPCS: 36415; 71046; 80053; 84484; 84703; 85025; 85610; 85730; 93005; 99284

== ENCOUNTER 2021-02-18 19:28 | Emergency (ER) | payer SELFPAY ==
[2021-02-18 21:36] VITALS: BP 125/69
--- NOTE | 2021-02-18 21:52 | Emergency Department Report ---
Blank Doc - Documentation Documentation: 35-year-old female that presents with left knee pain that radiates towards left leg. Denies any injury or trauma. Denies any chest pain or shortness of breath. Exam: calf tenderness with positive Homans test. 1- This initial assessment/diagnostic orders/clinical plan/ treatment(s) is/are subject to change based on pt's health status, clinical progression and re- assessment by fellow clinical providers in the ED. Further treatment and workup at subsequent clinical provers discretion. Patient/guardians urged not to elope from ED as their condition may be serious if not clinically assessed and managed. 2-Doppler ultrasound 3-x-rays
--- NOTE | 2021-02-18 22:50 | XRay Report ---
LEFT KNEE 3 VIEWS INDICATION / CLINICAL INFORMATION: left knee pain COMPARISON: None available. FINDINGS: BONES / JOINT(S): No acute fracture or subluxation. No significant arthritis. SOFT TISSUES: There is an effusion in the suprapatella bursa. ADDITIONAL FINDINGS: None. Signer Name: David Urias MD Signed: 02/18/2021 10:45 PM Workstation Name: [id number]
--- NOTE | 2021-02-18 23:08 | Vascular Lab Report ---
DUPLEX DOPPLER LOWER EXTREMITY VEINS, LEFT INDICATION / CLINICAL INFORMATION: left leg pain. TECHNIQUE: Duplex doppler imaging was performed through the veins of the left lower extremity using v enous compression and other maneuvers. COMPARISON: None available. FINDINGS: LEFT COMMON FEMORAL VEIN: Negative. LEFT FEMORAL VEIN: Negative. LEFT POPLITEAL VEIN: Negative. LEFT CALF VEINS: Negative. ADDITIONAL FINDINGS: None. IMPRESSION: 1. No sonographic evidence for DVT in the left lower extremity. Signer Name: David Urias MD Signed: 02/18/2021 11:04 PM Workstation Name: [id number]
[2021-02-18] MEDS ORDERED: HYDROcodone/ACETAMINOPHEN 10-325MG TAB PO ONE (23:46)
--- NOTE | 2021-02-18 23:47 | Emergency Department Report ---
ED Lower Extremity HPI - General Chief Complaint: Extremity Injury, Lower Stated Complaint: RT LEG PAINS Time Seen by Provider: 02/18/21 21:51 Source: patient Mode of arrival: Ambulatory Limitations: No Limitations - History of Present Illness Initial Comments: This is a 35-year-old female nontoxic, well nourished in appearance, no acute signs of distress presents to the ED with c/o of left knee pain with radiation to left leg x several days. Patient denies any injuries or trauma. Patient denies any numbness, tingling, fever, chills, nausea, vomiting, chest pain, shortness of breath, headache, stiff neck. Patient denies any joint swelling or joint redness. Patient denies decreased range of motion. Patient stated has decreased gait due to pain. Patient denies any allergies or significant past medical history. -: days(s) Injury: Leg: Left, Knee: Left Severity: mild Severity scale (0 -10): 8 Improves With: immobilization Worsens With: weight bearing, movement Associated Symptoms: swelling, able to partially bear weight. denies: snap/pop sensation, numbness, unable to bear weight - Related Data Previous Rx's Medication Instructions Recorded Last Taken Type Cetirizine HCl [ZyrTEC] 10 mg PO DAILY #30 capsule 08/11/19 Unknown Rx hydrOXYzine PAMOATE [Vistaril] 25 mg PO Q6HR PRN #20 capsule 08/11/19 Unknown Rx predniSONE [Deltasone] 20 mg PO DAILY #5 tablet 08/11/19 Unknown Rx Cetirizine HCl [Zyrtec 10mg tab] 10 mg PO DAILY #14 tablet 10/02/19 Unknown Rx Dextromethorphan Polistirex 10 ml PO Q12HR PRN #1 bottle 10/02/19 Unknown Rx [Delsym] Fluticasone [Flonase] 1 spray NS QDAY #1 bottle 10/02/19 Unknown Rx Furosemide [Lasix] 20 mg PO QDAY #3 tablet 03/26/20 Unknown Rx Benzonatate [Tessalon Perles] 100 mg PO Q8HR PRN #12 capsule 05/24/20 Unknown Rx Naproxen 500 mg PO Q12H PRN #12 tablet 02/18/21 Unknown Rx Allergies Allergy/AdvReac Type Severity Reaction Status Date / Time No Known Allergies Allergy Verified 05/24/20 13:56 ED Review of Systems ROS: Stated complaint: RT LEG PAINS Other details as noted in HPI Comment: All other systems reviewed and negative Constitutional: denies: chills, fever Eyes: denies: eye pain, eye discharge, vision change ENT: denies: ear pain, throat pain Respiratory: denies: cough, shortness of breath, wheezing Cardiovascular: denies: chest pain, palpitations Endocrine: no symptoms reported Gastrointestinal: denies: abdominal pain, nausea, diarrhea Genitourinary: denies: urgency, dysuria, discharge Musculoskeletal: denies: back pain, joint swelling, arthralgia Skin: denies: rash, lesions Neurological: denies: headache, weakness, paresthesias Psychiatric: denies: anxiety, depression Hematological/Lymphatic: denies: easy bleeding, easy bruising ED Past Medical Hx - Past Medical History Previous Medical History?: Yes Hx Asthma: Yes - Surgical History Past Surgical History?: Yes Additional Surgical History: cyst on left breast removed. tubal ligation - Social History Smoking Status: Never Smoker - Medications Home Medications: Home Medications Medication Instructions Recorded Confirmed Last Taken Type Cetirizine HCl [ZyrTEC] 10 mg PO DAILY #30 capsule 08/11/19 Unknown Rx hydrOXYzine PAMOATE [Vistaril] 25 mg PO Q6HR PRN #20 capsule 08/11/19 Unknown Rx predniSONE [Deltasone] 20 mg PO DAILY #5 tablet 08/11/19 Unknown Rx Cetirizine HCl [Zyrtec 10mg tab] 10 mg PO DAILY #14 tablet 10/02/19 Unknown Rx Dextromethorphan Polistirex 10 ml PO Q12HR PRN #1 bottle 10/02/19 Unknown Rx [Delsym] Fluticasone [Flonase] 1 spray NS QDAY #1 bottle 10/02/19 Unknown Rx Furosemide [Lasix] 20 mg PO QDAY #3 tablet 03/26/20 Unknown Rx Benzonatate [Tessalon Perles] 100 mg PO Q8HR PRN #12 capsule 05/24/20 Unknown Rx Naproxen 500 mg PO Q12H PRN #12 tablet 02/18/21 Unknown Rx ED Physical Exam - General Limitations: No Limitations General appearance: alert, in no apparent distress - Head Head exam: Present: atraumatic, normocephalic - Eye Eye exam: Present: normal appearance - Neck Neck exam: Present: normal inspection, full ROM - Respiratory Respiratory exam: Absent: respiratory distress - Cardiovascular Cardiovascular Exam: Present: regular rate - Extremities Exam Extremities exam: Present: normal inspection, full ROM, tenderness, normal capillary refill, calf tenderness. Absent: joint swelling - Expanded Lower Extremity Exam Left Hip exam: Present: normal inspection, full ROM. Absent: tenderness, swelling Upper Leg exam: Present: normal inspection, full ROM. Absent: tenderness, swelling Knee exam: Present: full ROM, tenderness, swelling, effusion, full knee extension. Absent: abrasion, laceration, ecchymosis, deformity, crepidus, dislocation, erythema, pain w/ pronation/supination, posterior draw sign, pain/laxity with valgus, pain/laxity with varus Lower Leg exam: Present: full ROM, tenderness, Sidra's sign. Absent: swelling, abrasion, laceration, ecchymosis, deformity, crepidus, dislocation, erythema, palpable cord Ankle exam: Present: normal inspection, full ROM. Absent: tenderness, swelling, abrasion, laceration, ecchymosis, deformity, crepidus, dislocation, erythema, anterior draw sign Foot/Toe exam: Present: normal inspection, full ROM. Absent: tenderness, swelling Neuro vascular tendon exam: Present: no vascular compromise Gait: Positive: observed and limited by pain - Back Exam Back exam: Present: normal inspection, full ROM - Neurological Exam Neurological exam: Present: alert, oriented X3, normal gait - Psychiatric Psychiatric exam: Present: normal affect, normal mood - Skin Skin exam: Present: warm, dry, intact, normal color. Absent: rash ED Course Vital Signs 02/18/21 21:32 Temperature 98.1 F Pulse Rate 65 Respiratory 17 Rate Blood Pressure 125/69 O2 Sat by Pulse 100 Oximetry - Reevaluation(s) Reevaluation #1: 02/18/21 23:45 Patient is speaking in full sentences with no signs of distress noted. ED Lower Extremity MDM - Radiology Data [facility] [address] [place] [address] XRay Report Signed Patient: NOEL MITCHELL MR#: [id number] : 1985 Acct:[id number] Age/Sex: 35 / F ADM Date: 02/18/21 Loc: ED Attending Dr: Ordering Physician: EDSON REARDON NP Date of Service: 02/18/21 Procedure(s): XR knee 3V LT Accession Number(s): [id number] cc: EDSON REARDON NP Fluoro Time In Minutes: LEFT KNEE 3 VIEWS INDICATION / CLINICAL INFORMATION: left knee pain COMPARISON: None available. FINDINGS: BONES / JOINT(S): No acute fracture or subluxation. No significant arthritis. SOFT TISSUES: There is an effusion in the suprapatella bursa. ADDITIONAL FINDINGS: None. Signer Name: David Urias MD Signed: 02/18/2021 10:45 PM Workstation Name: [id number] Transcribed By: SS Dictated By: David Urias MD Electronically Authentica stewart By: David Urias MD Signed Date/Time: 02/18/212244 DD/ 44 TD/TT: [facility] [address] [place] [address] V ascular Lab Report Signed Patient: NOEL MITCHELL MR#: [id number] : 1985 Acct:[id number] Age/Sex: 35 / F ADM Date: 02/18/21 Loc: ED Attending Dr: Ordering Physician: EDSON REARDON NP Date of Service: 02/18/21 Procedure(s): VL venous duplex LE LT Accession Number(s): [id number] cc: EDSON REARDON NP DUPLEX DOPPLER LOWER EXTREMITY VEINS, LEFT INDICATION / CLINICAL INFORMATION: left leg pain. TECHNIQUE: Duplex doppler imaging was performed through the veins of the left lower extremity using venous compression and other maneuvers. COMPARISON: None available. FINDINGS: LEFT COMMON FEMORAL VEIN: Negative. LEFT FEMORAL VEIN: Negative. LEFT POPLITEAL VEIN: Negative. LEFT CALF VEINS: Negative. ADDITIONAL FINDINGS: None. IMPRESSION: 1. No sonographic evidence for DVT in the left lower extremity. Signer Name: David Urias MD Signed: 02/18/2021 11:04 PM Workstation Name: [id number] Transcribed By: SS Dictated By: David Urias MD Electronically Authenticated By: David camargo MD Signed Date/Time: 02/18/212303 DD/ 02 TD/TT: - Medical Decision Making This is a 35-year-old female that presents with left knee strain. Patient is stable and was examined by me. I referred patient to an orthopedic doctor for further evaluation for possible MRI. X-ray and ultrasound has been obtained and dictated by the radiologist. Patient is notified of the imaging report with noted by the patient. Patient does have normal gait with no tenderness and no joint swelling. No ecchymosis. no joint redness or swelling. Not warm to touch. No signs of cellulites present. Patient received a knee immobilize. Patient was instructed to RICE therapy. Patient received [place] for pain which stated pain is under control. Patient stated family will drive the patient home after discharge due to possible drowsiness of [place]. Patient is discharged with naproxen. At time of discharge, the patient does not seem toxic or ill in appearance. No acute signs of distress noted. Patient agrees to discharge treatment plan of care. No further questions noted by the patient. Critical care attestation.: If time is entered above; I have spent that time in minutes in the direct care of this critically ill patient, excluding procedure time. ED Disposition Clinical Impression: Strain of left knee and leg Qualifiers: Encounter type: initial encounter Qualified Code(s): S86.912A - Strain of unspecified muscle(s) and tendon(s) at lower leg level, left leg, initial encounter Disposition: -01 TO HOME OR SELFCARE Is pt being admited?: No Does the pt Need Aspirin: No Condition: Stable Instructions: Muscle Strain, [id number], Acute Knee Pain, Adult, RICE Therapy for Routine Care of Injuries, [id number] Additional Instructions: Follow-up with a orthopedic doctor in 3-5 days or if symptoms worsen and continue return to emergency room as soon as possible. No physical activity that extremity until cleared by orthopedic doctor Prescriptions: Naproxen 500 mg PO Q12H PRN #12 tablet PRN Reason: pain Referrals: PRIMARY CARE, [Primary Care Provider] - 3-5 Days SHERON ELENA MD [Staff Physician] - 3-5 Days Forms: Work/School Release Form(ED) Time of Disposition: 23:48
== END 2021-02-19 00:35 | disposition home or self-care (01) ==
LOC: ED 19:28
DX: S86.912A Strain of unspecified muscle(s) and tendon(s) at lower leg level, left leg, initial encounter (principal); J45.909 Unspecified asthma, uncomplicated; Z79.899 Other long term (current) drug therapy; X58.XXXA Exposure to other specified factors, initial encounter; Y93.89 Activity, other specified; Y92.89 Other specified places as the place of occurrence of the external cause; Y99.8 Other external cause status

== ENCOUNTER 2022-01-04 11:10 | Emergency (ER) | payer OTHER ==
[2022-01-04 11:46] VITALS: BP 122/56
[2022-01-04] MEDS ORDERED: IBUPROFEN 800 MG TAB PO STA (13:24)
[2022-01-04] MEDS ORDERED: HYDROcodone/ACETAMINOPHEN 5-325 MG TAB PO ONE (13:24)
--- NOTE | 2022-01-04 13:32 | Emergency Department Report ---
ED General Adult HPI - General Chief complaint: Abdominal Pain Stated complaint: DISCHARGE/ITCHING/PASSNG BLOOD Time Seen by Provider: 01/04/22 12:41 Source: patient Mode of arrival: Ambulatory Limitations: No Limitations - History of Present Illness Initial comments: 36-year-old -[place] female patient presents with complaints of pelvic pain, vaginal discharge/itching, and possible hematuria x2 days. She rates her current pain as 8/10 in severity. Patient admits to dyspareunia, dysuria, and urinary frequency. No flank/back pain, fever/chills/sweats, nausea/vomiting/diarrhea, or difficulty with ambulation per patient. She denies any past medical history or known drug allergies. -: Sudden Severity scale (0 -10): 10 - Related Data Previous Rx's Medication Instructions Recorded Last Taken Type Cetirizine HCl [ZyrTEC] 10 mg PO DAILY #30 capsule 08/11/19 Unknown Rx hydrOXYzine PAMOATE [Vistaril] 25 mg PO Q6HR PRN #20 capsule 08/11/19 Unknown Rx predniSONE [Deltasone] 20 mg PO DAILY #5 tablet 08/11/19 Unknown Rx Cetirizine HCl [Zyrtec 10mg tab] 10 mg PO DAILY #14 tablet 10/02/19 Unknown Rx Dextromethorphan Polistirex 10 ml PO Q12HR PRN #1 bottle 10/02/19 Unknown Rx [Delsym] Fluticasone [Flonase] 1 spray NS QDAY #1 bottle 10/02/19 Unknown Rx Furosemide [Lasix] 20 mg PO QDAY #3 tablet 03/26/20 Unknown Rx Benzonatate [Tessalon Perles] 100 mg PO Q8HR PRN #12 capsule 05/24/20 Unknown Rx Naproxen 500 mg PO Q12H PRN #12 tablet 02/18/21 Unknown Rx Acetaminophen/Codeine [Tylenol 1 tab PO Q8H PRN #6 tab 01/04/22 Unknown Rx /Codeine # 3 tab] Doxycycline Monohydrate 100 mg PO BID 14 Days #28 tab 01/04/22 Unknown Rx Fluconazole [Diflucan TAB] 150 mg PO ONCE #2 tablet 01/04/22 Unknown Rx Ibuprofen [Motrin 800 MG tab] 800 mg PO Q8HR PRN #20 tablet 01/04/22 Unknown Rx Allergies Allergy/AdvReac Type Severity Reaction Status Date / Time No Known Allergies Allergy Verified 05/24/20 13:56 ED Review of Systems ROS: Stated complaint: DISCHARGE/ITCHING/PASSNG BLOOD Other details as noted in HPI Constitutional: denies: chills, fever, malaise Cardiovascular: denies: chest pain Gastrointestinal: abdominal pain. denies: nausea, vomiting, diarrhea, constipation, hematemesis, melena, hematochezia Genitourinary: as per HPI Musculoskeletal: denies: back pain Skin: denies: rash, lesions, change in color Hematological/Lymphatic: denies: swollen glands ED Past Medical Hx - Past Medical History Hx Asthma: Yes - Surgical History Additional Surgical History: cyst on left breast removed. tubal ligation - Social History Smoking Status: Never Smoker - Medications Home Medications: Home Medications Medication Instructions Recorded Confirmed Last Taken Type Cetirizine HCl [ZyrTEC] 10 mg PO DAILY #30 capsule 08/11/19 Unknown Rx hydrOXYzine PAMOATE [Vistaril] 25 mg PO Q6HR PRN #20 capsule 08/11/19 Unknown Rx predniSONE [Deltasone] 20 mg PO DAILY #5 tablet 08/11/19 Unknown Rx Cetirizine HCl [Zyrtec 10mg tab] 10 mg PO DAILY #14 tablet 10/02/19 Unknown Rx Dextromethorphan Polistirex 10 ml PO Q12HR PRN #1 bottle 10/02/19 Unknown Rx [Delsym] Fluticasone [Flonase] 1 spray NS QDAY #1 bottle 10/02/19 Unknown Rx Furosemide [Lasix] 20 mg PO QDAY #3 tablet 03/26/20 Unknown Rx Benzonatate [Tessalon Perles] 100 mg PO Q8HR PRN #12 capsule 05/24/20 Unknown Rx Naproxen 500 mg PO Q12H PRN #12 tablet 02/18/21 Unknown Rx Acetaminophen/Codeine [Tylenol 1 tab PO Q8H PRN #6 tab 01/04/22 Unknown Rx /Codeine # 3 tab] Doxycycline Monohydrate 100 mg PO BID 14 Days #28 tab 01/04/22 Unknown Rx Fluconazole [Diflucan TAB] 150 mg PO ONCE #2 tablet 01/04/22 Unknown Rx Ibuprofen [Motrin 800 MG tab] 800 mg PO Q8HR PRN #20 tablet 01/04/22 Unknown Rx ED Physical Exam - General Limitations: No Limitations General appearance: alert, in no apparent distress, obese - Head Head exam: Present: atraumatic, normocephalic - Eye Eye exam: Present: normal appearance. Absent: scleral icterus - Neck Neck exam: Present: normal inspection - Respiratory Respiratory exam: Present: normal lung sounds bilaterally. Absent: respiratory distress - Cardiovascular Cardiovascular Exam: Present: regular rate, normal rhythm - GI/Abdominal GI/Abdominal exam: Present: soft, tenderness (Suprapubic), normal bowel sounds. Absent: distended, guarding, rebound, rigid - External exam: Present: normal external exam Speculum exam: Present: vaginal discharge ([place] white). Absent: vaginal bleeding Bi-manual exam: Present: cervical motion tendernes. Absent: adnexal tenderness, adnexal mass - Extremities Exam Extremities exam: Present: full ROM - Back Exam Back exam: Absent: tenderness, CVA tenderness (L) - Neurological Exam Neurological exam: Present: alert, oriented X3, normal gait - Psychiatric Psychiatric exam: Present: normal affect, normal mood - Skin Skin exam: Present: warm, dry, intact, normal color. Absent: rash ED Course Vital Signs 01/04/22 11:44 Temperature 98.1 F Pulse Rate 84 Respiratory 18 Rate Blood Pressure 122/56 [Right] O2 Sat by Pulse 98 Oximetry ED Medical Decision Making - Radiology Data Radiology results: report reviewed FINDINGS: Uterus: Present. Size: 10.8 x 7.4 x 10.5 cm. Endometrial complex: Prominent measuring 0.96 cm. Mass lesions: A large posterior lesion measuring 5.6 x 8.5 x 8 cm is likely a large fibroid. There appears to be a smaller fibroid at the fundus. Additional findings: None. Right Ovary -- 3.3 x 1.9 x 1.8 Blood flow: Normal. Cyst or mass: None. Left Ovary-- 3.4 x 2.3 x 1.3 cm. Blood flow: Normal. Cyst or mass: 2.0 cm complex lesion. Urinary Bladder: Normal. Free Fluid: Mild free fluid. Additional Findings: None. IMPRESSION: 1. Suspected fibroid disease including a large posterior fibroid. 2. Prominence of the endometrial stripe without discrete lesion. 3. Probable small hemorrhagic cyst left ovary. 4. Mild pelvic free fluid. - Medical Decision Making 36-year-old -[place] female patient presents with complaints of pelvic pain, vaginal discharge/itching, and possible hematuria x2 days. She rates her current pain as 8/10 in severity. Patient admits to dyspareunia, dysuria, and urinary frequency. No flank/back pain, fever/chills/sweats, nausea/vomiting/diarrhea, or difficulty with ambulation per patient. She denies any past medical history or known drug allergies. CMT noted on exam with vaginal discharge. Wet prep is negative for trichomonas and shows yeast. Fibroids, small hemorrhagic cyst, and small amount of free pelvic fluid noted on ultrasound. Will cover patient for gonorrhea and chlamydia for PID. Recommend follow-up with [facility] within 3 to 5 days. She is otherwise well-appearing, her vitals within normal limits, she is stable for discharge home. Strict return precautions were discussed in detail with patient who verbalizes understanding. Patient also instructed to follow-up with her [facility] for full STI testing refrain from sexual intercourse for minimum of 3 weeks and have her partner tested and treated Critical care attestation.: If time is entered above; I have spent that time in minutes in the direct care of this critically ill patient, excluding procedure time. ED Disposition Clinical Impression: Yeast vaginitis, PID (acute pelvic inflammatory disease), Ovarian cyst affecting in first trimester, antepartum Disposition: 01 HOME / SELF CARE / HOMELESS Is pt being admited?: No Condition: Stable Instructions: Vaginal Yeast Infection, Adult, Ovarian Cyst, [id number], Pelvic Inflammatory Disease, Abdominal Pain (ED) Prescriptions: Fluconazole [Diflucan TAB] 150 mg PO ONCE #2 tablet Doxycycline Monohydrate 100 mg PO BID 14 Days #28 tab Ibuprofen [Motrin 800 MG tab] 800 mg PO Q8HR PRN #20 tablet PRN Reason: Pain, Moderate (4-6) Acetaminophen/Codeine [Tylenol /Codeine # 3 tab] 1 tab PO Q8H PRN #6 tab PRN Reason: Pain , Severe (7-10) Referrals: PRIMARY CARE,MD [Primary Care Provider] - 3-5 Days Forms: Work/School Release Form(ED)
[2022-01-04 13:52] LABS: Bilirubin,Urine NEG (Negative); Blood,Urine NEG (Negative); Color,Urine Amber (Yellow); Protein,Urine <15 mg/dL mg/dL (Negative); RBC,Urine < 1.0 /HPF (0.0-6.0)
[2022-01-04 13:59] LABS: HCG Qualitative,Urine Negative (Negative)
[2022-01-04] MEDS ORDERED: LIDOCAINE-MPF (1%) 10 MG/1 ML VIAL 5 ML INFILTRATI ONE (14:28)
--- NOTE | 2022-01-04 16:47 | Ultrasound Report ---
ULTRASOUND PELVIS INDICATION: pain, cervical motion tenderness. TECHNIQUE: Transabdominal and Transvaginal. Duplex Color Doppler used: Yes. COMPARISON: None available FINDINGS: Uterus: Present. Size: 10.8 x 7.4 x 10.5 cm. Endometrial complex: Prominent measuring 0.96 cm. Mass lesions: A large posterior lesion measuring 5.6 x 8.5 x 8 cm is likely a large fibroid. There ap pears to be a smaller fibroid at the fundus. Additional findings: None. Right Ovary -- 3.3 x 1.9 x 1.8 Blood flow: Normal. Cyst or mass: None. Left Ovary-- 3.4 x 2.3 x 1.3 cm. Blood flow: Normal. Cyst or mass: 2.0 cm complex lesion. Urinary Bladder: Normal. Free Fluid: Mild free fluid. Additional Findings: None. IMPRESSION: 1. Suspected fibroid disease including a large posterior fibroid. 2. Prominence of the endometrial stripe without discrete lesion. 3. Probable small hemorrhagic cyst left ovary. 4. Mild pelvic free fluid. Signer Name: Adam Hassan MD Signed: 01/04/2022 4:42 PM Workstation Name: [id number]
== END 2022-01-04 18:13 | disposition home or self-care (01) ==
LOC: ED 11:10
DX: B37.3 Candidiasis of vulva and vagina (principal); N73.9 Female pelvic inflammatory disease, unspecified; N83.299 Other ovarian cyst, unspecified side; J45.909 Unspecified asthma, uncomplicated
CPT/HCPCS: 76830; 76856; 81001; 81025; 87210; 96372; 99284; J0696; J3490